=== PATIENT | male | born 1985 | race Caucasian/White ===

== ENCOUNTER 2018-03-18 19:47 | Emergency (ER) | payer OTHER, SELFPAY ==
[2018-03-18 19:48] VITALS: BP 187/100; PULSE 113; RESP 20; TEMP 36.4; O2SAT 97; BMI 33.4
--- NOTE | 2018-03-18 19:52 | RAD_ITS ---
STUDY: X-RAY CHEST REASON FOR EXAM: Male, 33 years old. Chest pain for one week. TECHNIQUE: Single AP portable view of the chest. COMPARISON: None. FINDINGS: Telemetry wires overlie the chest. The lungs are hypoexpanded. There is no focal mass or infiltrate. There is no demonstrated pleural abnormality. Normal size heart. Normal mediastinum and ariana. Normal visualized pulmonary arteries. Normal visualized aortic arch and descending thoracic aorta. The thoracic spine is obscured by the mediastinum. Normal visualized ribs, clavicles, and shoulders. There is no demonstrated abnormality of the visualized soft tissue structures of the upper abdomen. RAD/Chest 1 View (Portable) IMPRESSION: No acute cardiopulmonary disease. Electronically Signed: Alvarado Hernandez DO at 21:17 EDT Tel [phone], Service support ,
--- NOTE | 2018-03-18 19:52 | EKG12_ITS ---
Test Reason : REPEAT Blood Pressure : / mmHG Vent. Rate : 094 BPM Atrial Rate : 094 BPM P-R Int : 222 ms QRS Dur : 078 ms QT Int : 350 ms P-R-T Axes : 023 021 -02 degrees QTc Int : 437 ms Sinus rhythm with 1st degree A-V block Nonspecific T wave abnormality Confirmed by GERRI OTTO, ASIF ([id number]), dictionary editor ODELL CAZARES ([id number]) on 03/22/2018 2:33:29 PM Referred By: RUBY Confirmed By:ASIF TALLEY MD
[2018-03-18 20:01] VITALS: BP 153/106; PULSE 102; RESP 18; O2SAT 96
[2018-03-18 20:10] LABS: Absolute Lymphocyte Count 2.22 X10^3/ul (0.83-4.51); Basophil# 0.09 X10^3/uL; Basophil% 0.9 % (0-1); Eosinophil# 0.29 X10^3/uL; Eosinophils% 2.8 % (0-5); Hematocrit 45.5 % (40-54); Hemoglobin 16.4 g/dl (13.0-16.5); Lymphocyte # 2.22 X10^3/ul (4.0); Lymphocyte % 21.8 % (19-41); Mean Corpuscular Hgb 31.8 pg (27.0-32.0); Mean Corpuscular Volume 88.3 fL (80-94); Mean Platelet Vol. 9.8 fl (6.2-12.0); Monocyte% 5.9 % (0-10); Neutrophil # 6.98 X10^3/uL (2.7-7.7); Neutrophil % 68.5 % (47-70); Platelet Count 172 K/mm3 (150-450); RBC Distribution Width CV 13.1 % (11.6-14.6); Red Blood Count 5.15 M/mm3 (4.6-6.2); White Blood Count 10.2 K/mm3 (4.4-11.0)
[2018-03-18 20:14] LABS: POSITIVE COUNT NO; POSITIVE DIFFERENTIAL NO; POSITIVE MORPHOLOGY NO
[2018-03-18 20:26] LABS: Anion Gap 7 (5-15); BUN 12 mg/dL (7-18); BUN/Creat Ratio 10.3 RATIO (10-20); Calcium,Total 9.1 mg/dL (8.5-10.1); Chloride 107 mmol/L (98-107); Creatinine, Serum 1.16 mg/dL (0.70-1.30); EST Glomerular Filtration Rate 76 mL/min (>60); Est Glom Filt Rate - Afr Amer 92 mL/min (>60); Estimated Creatinine Clearance 103.34 ml/min; Glucose 184 mg/dL (74-106); Potassium 3.3 mmol/L (3.5-5.1); Sodium Level 140 mmol/L (136-145)
[2018-03-18 21:00] VITALS: BP 136/93; PULSE 93; RESP 16; O2SAT 97
--- NOTE | 2018-03-18 21:00 | ED.VISSUMM ---
- ER Visit Summary Date of Service: 03/18/18 Chief Complaint: Chest pain History of Present Illness: The patient is a 33 M with intermittent chest pain over the past several days. States it lasts seconds to minutes at a time. He cannot identify a rhyme or reason as to when it starts. He is noted several episodes of it occurring when he sitting at rest. He states he occasionally gets nauseated and short of breath with it as well. Patient states his father has a strong cardiac history with multiple stents and bypass surgery. Patient does admit to recent plane travel. Physical Examination: Blood pressure is 153/106, temperature 97.6, heart rate 102, respiratory rate 18, pulse ox 96% on room air. Patient sitting upright in bed watching television. He is in no acute distress. Head neck examination is normal. Heart is regular rate and rhythm. Lung sounds are clear. Abdomen is soft nontender. Lower external examination was no calf tenderness or edema on exam. Test Results: EKG is sinus at 101 with no sign of acute ischemia. CBC is normal. Chemistry studies significant only for potassium of 3.3. Glucose is 184. Troponin is less than 0.015. D-dimer is normal at 0.44. Chest x-ray shows no acute disease. Emergency Department Course and Treatment: Patient was given potassium replacement orally. Patient did have one episode of chest pain. Repeat chest x-ray was performed and unremarkable. On repeat examination patient is resting without pain. Test results were discussed with him. Pros and cons of stress testing and admission were discussed. He will prefer to go home at this time. Patient has had 5-7 days of symptoms with normal blood work. It does not seem to be brought on by exertion. He does, however, have a strong family history of heart disease. I will discuss patient with on-call physician for PCP and help to facilitate close follow-up. Treatment Plan: [] Disposition: Discharge Impression: Chest pain This note was generated with [employer] dictation software. It may contain incorrect words, spelling, and punctuation that were not noted in review of the chart prior to signing ED Disposition - Plan for ED Patient: Chief Complaint: Chest Pain Referrals: Patrice Gaston DO [Primary Care Provider] -
[2018-03-18 21:40] LABS: D-Dimer Quantitative (DVT/PE) 0.44 FEU/ug/m (0.27-0.49)
[2018-03-18 22:13] VITALS: BP 137/92; O2SAT 95
--- NOTE | 2018-03-18 22:48 | ED.DEP ---
ED Disposition - Plan for ED Patient: Disposition: Home or Assisted Living Chief Complaint: Chest Pain Instructions: ED Chest Pain Atypical Unkn Cause Referrals: Patrice Gaston DO [Primary Care Provider] - As soon as possible
[2018-03-18 22:57] VITALS: BP 137/92; PULSE 91; RESP 18; O2SAT 95
--- NOTE | 2018-03-18 23:31 | ED.RN ---
encouraged pt to come back with further CP symptoms.
== END 2018-03-18 23:31 | disposition home or self-care (01) ==
PROVIDERS: Emergency Provider Emergency Medicine; Family Provider Student in an Organized Health Care Education/Training Program; PCP Student in an Organized Health Care Education/Training Program
DX: R07.9 Chest pain, unspecified (principal); Z82.49 Family history of ischemic heart disease and other diseases of the circulatory system; Z72.0 Tobacco use
CPT/HCPCS: 71045; 80048; 84484; 85025; 85379; 93005; 99285; A4216

== ENCOUNTER 2018-03-20 14:19 | Observation (INO) | payer OTHER, SELFPAY ==
[2018-03-20] VITALS (9 sets, daily range): BP systolic 147–166; BP diastolic 73–113; PULSE 72–91; RESP 16–22; TEMP 36.8–37.1; O2SAT 94–98; BMI 33.4; BMI 33.3
--- NOTE | 2018-03-20 14:24 | RAD_ITS ---
STUDY: X-RAY CHEST REASON FOR EXAM: Male, 33 years old. Chest pain TECHNIQUE: Single AP portable view of the chest. COMPARISON: None. FINDINGS: The lungs are clear and expanded. There is no demonstrated pleural abnormality. Normal size heart. Normal mediastinum and ariana. Normal visualized pulmonary arteries. Normal visualized aortic arch and descending thoracic aorta. Normal visualized thoracic spine. Normal visualized ribs, clavicles, and shoulders. There is no demonstrated abnormality of the visualized soft tissue structures of the upper abdomen. RAD/Chest 1 View (Portable) IMPRESSION: Normal x-ray examination of the chest. Electronically Signed: Jhonny Doss MD at 15:02 EDT , Service support ,
--- NOTE | 2018-03-20 14:24 | EKG12_ITS ---
Test Reason : CP Blood Pressure : / mmHG Vent. Rate : 101 BPM Atrial Rate : 101 BPM P-R Int : 184 ms QRS Dur : 090 ms QT Int : 356 ms P-R-T Axes : 030 025 000 degrees QTc Int : 461 ms Sinus tachycardia Otherwise normal ECG Confirmed by GERRI OTTO, ASIF ([id number]), editor trade journal ODELL CAZARES ([id number]) on 03/22/2018 2:33:52 PM Referred By: Confirmed By:ASIF TALLEY MD
[2018-03-20] MEDS: Aspirin 81 MG TAB.CHEW 324 MG PO (14:41)
--- NOTE | 2018-03-20 14:41 | ED.DCSUM_ITS ---
- ER Visit Summary Date of Service: 03/20/18 Chief Complaint: [] Recurrent chest pain History of Present Illness: The patient is a 33 M [] patient began having chest pain on Wednesday he was seen in the emergency department workup that was unremarkable with admission was recommended he declined he reports he went home , he also was noted to have elevated blood pressure it is unclear if he has a history of hypertension or not, over today had recurrence of the chest pain and he was instructed to return and he did he is agreeable to admission now indicates chest pain seems to be paroxysmal and is not necessarily associate with food or exertion he has no history of [place] PE DVT and again he has no known history for sure of hypertension he does smoke denies illicit drug use or alcohol works like a desk job Physical Examination: [] Pressure is 150/105 he is resting comforting the bed and traumatic head neck chest unremarkable lungs clear heart tones normal the abdomen soft nontender upper lower extremity unremarkable pulses symmetric no cyanosis clubbing or edema Test Results: [] Emergency Department Course and Treatment: [] Recurrent chest pain his EKG shows nothing acute given all the above we will arrange for screening labs troponin chest x-ray and admission as he has had persistent pain intimately since Wednesday Treatment Plan: [] Disposition: [] Admit stable Impression: [] Recurrent chest pain evaluate for angina This note was generated with [employer] dictation software. It may contain incorrect words, spelling, and punctuation that were not noted in review of the chart prior to signing ED Disposition - Plan for ED Patient: Chief Complaint: Chest Pain Referrals: Patrice Gaston DO [Primary Care Provider] -
[2018-03-20] MEDS: 0.9% Normal Saline 1,000 ML 150 ML IV (14:50)
[2018-03-20 15:24] LABS: Anion Gap 7 (5-15); BUN 14 mg/dL (7-18); BUN/Creat Ratio 15.2 RATIO (10-20); Calcium,Total 9.1 mg/dL (8.5-10.1); Chloride 107 mmol/L (98-107); Creatinine, Serum 0.92 mg/dL (0.70-1.30); EST Glomerular Filtration Rate 100 mL/min (>60); Est Glom Filt Rate - Afr Amer 120 mL/min (>60); Glucose 132 mg/dL (74-106); Potassium 3.4 mmol/L (3.5-5.1); Sodium Level 140 mmol/L (136-145)
[2018-03-20 15:34] LABS: Absolute Lymphocyte Count 2.19 X10^3/ul (0.83-4.51); Absolute Neutrophil Count 5.9 X10^3/uL (2.0-7.7); Basophil# 0.04 X10^3/uL; Basophil% 0.4 % (0-1); Eosinophil# 0.26 X10^3/uL; Eosinophils% 2.9 % (0-5); Hematocrit 45.7 % (40-54); Hemoglobin 16.5 g/dl (13.0-16.5); Lymphocyte # 2.19 X10^3/ul (4.0); Lymphocyte % 24.4 % (19-41); Mean Corp Hgb Conc 36.1 g/gl (32-36); Mean Corpuscular Hgb 32.1 pg (27.0-32.0); Mean Corpuscular Volume 88.9 fL (80-94); Mean Platelet Vol. 9.9 fl (6.2-12.0); Monocyte# 0.55 X10^3/uL; Monocyte% 6.1 % (0-10); Neutrophil # 5.93 X10^3/uL (2.7-7.7); Neutrophil % 66.1 % (47-70); POSITIVE COUNT NO; POSITIVE DIFFERENTIAL NO; POSITIVE MORPHOLOGY NO; Platelet Count 164 K/mm3 (150-450); RBC Distribution Width CV 13.1 % (11.6-14.6); RBC Distribution Width SD 42.4 fl (35.1-43.9); Red Blood Count 5.14 M/mm3 (4.6-6.2)
--- NOTE | 2018-03-20 16:43 | NURSING ---
CALLED [facility] IN [place] TO SEND PT.
--- NOTE | 2018-03-20 17:15 | HP.PCM_ITS ---
<Andrea Lopes - Last Filed: 03/20/18 17:11> Problem List (1) Chest pain Status: Acute (2) Nicotine abuse Status: Chronic History of Present Illness Date of Admission: 03/20/18 Chief Complaint: chest pain The patient is a 33 year old M with a hx of smoking 1ppd x 15 years who presents to the ER today with chest pain. This has been going on all week off and on randomly. It often occurs while he is standing not doing anything, last episode was this AM while he was sitting. He came to the ER on Wednesday and workup was negative and he went home with instructions to come back if it recurred. He had two painful episodes one last night and another this AM at about 1030. He Describes it as a midsternal chest pain that is sharp and severe and it radiates to the left side of his chest and down his left arm. No radiation into the back or neck. No aggravating or alleviating symptoms. He has associated SOB, sweats, lightheadedness, and nausea (no vomiting). He has no medical problems that he knows of. His father had multiple heart problems including CAD and valve issues. He takes no medications. [] Past Medical History Past Medical History (Chronic Problems): Chronic Problems Nicotine abuse (Chronic) Allergies Penicillins [PCN] Allergy (Verified 07/01/16 15:38) Hives tramadol [From Ultram] Allergy (Verified 03/18/18 19:48) Hives Home Medications: Ambulatory Orders Medication Instructions Recorded NK [NK] 03/18/18 Lives: With Family Smoking Status: Current every day smoker Tobacco Use: Cigarettes - 1 ppd x 15 years Alcohol: Occasional Drugs: None - *Family History Maternal History Items: No pertinent history Paternal History Items: Diabetes, Heart Disease - CAD, valves, stents Review of Systems Constitutional: Denies: Chills, Fever, Weight Change HEENT: Denies: Head Aches, Sinus Congestion, Sinus Drainage Cardiovascular: Reports: Chest Pain, Light Headedness. Denies: Chest Pressure, Chest Tightness, Edema, Heaviness, Palpitations, Syncope Respiratory: Reports: Shortness of Breath, Shortness of breath at rest. Denies : Cough, Sputum production Gastrointestinal: Reports: Nausea. Denies: Abdominal Pain, Vomiting Genitourinary: Denies: Dysuria Musculoskeletal: Denies: Joint Pain, Joint Tenderness Skin: Denies: Rash, Wounds Neurological: Denies: Numbness, Tingling, Focal weakness Psychiatric: Denies: Anxiety, Depression, Homicidal Ideations, Suicidal Ideations Hematologic/ Lymphatic: Denies: Easy Bruising, Easy Bleeding VTE Information - Inpt Only VTE Present on Admission: No VTE Mechan Device Prophylaxis: None VTE Pharm Prophylaxis ordered?: No Reason prophylaxis not ordered:: Procedure Not Indicated Patient Problems: Active and Suspected Problems Chest pain (Acute) - Physical Exam General: Alert, Oriented x3, Cooperative HEENT: Atraumatic, PERRLA, EOMI, Normocephalic Neck: Supple, No JVD, Negative Carotid Bruits Lungs: Clear to auscultation, Normal air movement Cardiovascular: Regular rate, No murmurs Abdomen: Bowel Sounds Present, Soft, Non Tender Extremities: No edema, Capillary Refill Less than 3 Seconds Skin: No rashes, No breakdown Musculoskeletal: No Tenderness to Palpation of Joints or Extremities Neurological: Cranial nerves II-XII grossly intact Psych/Mental Status: Normal Affect, Appropriate, Alert and oriented to time, place, person, mood and affect Vital Signs Temp Pulse Resp BP Pulse Ox 98.2 F 78 18 147/85 H 97 03/20/18 14:19 03/20/18 16:20 03/20/18 16:20 03/20/18 16:20 03/20/18 16:20 Assessment/Plan All Active Problems Chest pain (Acute) 1. Chest pain - risk factors include HTN, smoking hx, obesity, + family hx, symptomology. Negative troponin, neg EKG x 2, neg cxr BNP neg. Maintain on tele , prn nitro, daily aspirin, cycle enzymes, AM EKG, AM stress echo. 2. Nicotine abuse - patch ordered 3. HTN - trend, likely needs to be started on oral agent 4. Elevated glucose, check A1C. 5. Hypokalemia - k-dur x1 DVT ppx: early ambulation This patient was seen by Andrea Lopes PA-C under the supervision of Doctor Ralph. <Destiney Rosas - Last Filed: 03/20/18 17:57> History of Present Illness The patient is a 33 year old M [] Past Medical History Allergies Penicillins [PCN] Allergy (Verified 07/01/16 15:38) Hives tramadol [From Ultram] Allergy (Verified 03/18/18 19:48) Hives - Physical Exam Vital Signs Temp Pulse Resp BP Pulse Ox 98.3 F 76 16 161/102 H 95 03/20/18 17:39 03/20/18 17:39 03/20/18 17:39 03/20/18 17:39 03/20/18 17:39 Oxygen Delivery Method Room Air Weight: 117.9 kg Body Mass Index (BMI) 33.3 Assessment/Plan Patient was seen and examined. I agree with the history, physical exam and assessment and plan as documented by Andrea Lopes. 33 y/o male, chronic smoker, with morbid obesity, anxiety disorder on prn Ativan , recent elevated hypertension after shoulder surgery comes in with 1 week history of chest pain, substernal, radiates to left arm, not associated with dizziness, palpitations, light headedness. He was seen in the ED earlier this week; work-up was negative, refused to be admitted, asked to come back if he got symptoms. Positive family history of CAD in father. Physical exam: Vitals show uncontrolled BP, otherwise stable GEN: Obese, not pale, not jaundiced, well hydrated CVS: HS I +II, regular, no murmurs RESP: CTA ABD: Full, BS present, nontender, no palpable masses EXT: No edema A/P: 1. Chest pain, atypical 2. Hypokalemia 3. Hypertension 4. Morbid Obesity 5. Nicotine use disorder 6. Anxiety disorder Admit to telemetry, trend troponin Stress ECHO in am Replace potassium, repeat lab in am HgBA1c, fasting lipid profile Advised to quit smoking, start on Nicotine patch and gum Code Visit OBSV E&M: 33539 Initial observation care L3
--- NOTE | 2018-03-20 17:18 | EKG12_ITS ---
Test Reason : CP Blood Pressure : / mmHG Vent. Rate : 091 BPM Atrial Rate : 091 BPM P-R Int : 170 ms QRS Dur : 088 ms QT Int : 358 ms P-R-T Axes : 035 033 020 degrees QTc Int : 440 ms Normal sinus rhythm Normal ECG Confirmed by JUAN C PAYNE MD ([id number]), web content editor ODELL CAZARES ([id number]) on 03/22/2018 3:16:50 PM Referred By: Confirmed By:JUAN C PAYNE MD
[2018-03-20] MEDS: Acetaminophen 325 MG Tablet 650 MG PO (18:20)
[2018-03-20] MEDS: Carvedilol 3.125 MG TABLET PO (18:37)
[2018-03-20 19:36] LABS: Hemoglobin A1c 6.2 % (4.2-6.3)
[2018-03-20] MEDS: Ibuprofen 600 MG Tablet PO (22:02)
[2018-03-21 03:00] VITALS: PULSE 65
[2018-03-21 03:52] VITALS: BP 135/87; PULSE 68; RESP 16; TEMP 36.6; O2SAT 97
[2018-03-21 05:51] LABS: Hematocrit 46.1 % (40-54); Hemoglobin 16.1 g/dl (13.0-16.5); Mean Corp Hgb Conc 34.9 g/gl (32-36); Mean Corpuscular Hgb 31.3 pg (27.0-32.0); Mean Corpuscular Volume 89.7 fL (80-94); Platelet Count 156 K/mm3 (150-450); RBC Distribution Width CV 13.1 % (11.6-14.6); RBC Distribution Width SD 42.9 fl (35.1-43.9); Red Blood Count 5.14 M/mm3 (4.6-6.2); White Blood Count 8.6 K/mm3 (4.4-11.0)
[2018-03-21 05:53] LABS: Partial Thromboplast Time 28.7 Seconds (24.1-36.2)
--- NOTE | 2018-03-21 05:55 | EKG12_ITS ---
Test Reason : AM Blood Pressure : / mmHG Vent. Rate : 066 BPM Atrial Rate : 066 BPM P-R Int : 208 ms QRS Dur : 088 ms QT Int : 402 ms P-R-T Axes : 033 030 003 degrees QTc Int : 421 ms Normal sinus rhythm with sinus arrhythmia Normal ECG Confirmed by GERRI OTTO, ASIF ([id number]), web content editor ODELL CAZARES ([id number]) on 03/24/2018 12:47:50 PM Referred By: JUDI Confirmed By:ASIF TALLEY MD
--- NOTE | 2018-03-21 05:55 | STEWCON_ITS ---
Reason For Study: Chest pain Stress Results Protocol: Froilan Protocol Maximum Predicted HR: 185 bpm Target HR: 157 bpm% Max imum Predicted HR: 88 % DurationHeart Rate Stage (mm:ss) (bpm) BP Baseline 74 148/98 Stage 1 3:00 11 3 180/100 Stage 2 3:00 13 1 198/94 Stage 3 3:00 15 3 220/90 Stage 4 0:30 16 2 / Recovery 90 158/94 Stress Duration: 9:30 mm:ss Maximum Stress HR: 162 bpm Baseline Echocardiogram Findings Stress Echo Wall motion Data Resting WMIntermediate WMStress WM Resting Wall Motion Wall Motion Stress No regional wall motion No regional wall motion abnormalities noted. abnormalities noted. Ejection Fraction 60 %. Ejection Fraction 70 %. Stress Results Normal blood pressure response to exercise. Exercise was stopped due to dyspnea. EKG Data Baseline ECG demonstrates normal sinus rhythm with a rate of 66 beats per minute. The patient exercised according to the regular Froilan protocol for a total duration of 9 min and 30 sec. The maximum heart rate attained was 176 beats per minute. This was 95% of maximum predicted heart rate. The patient exercised into stage 4 of the Froilan protocol. During stress, there were no ST or T wave changes noted to suggest ischemia. The peak blood pressure was 220/90. No arrhythmias noted. No clinical angina was noted. Interpretation Summary Normal resting LV systolic function. Nonstenotic valves. With stress, the LV size decreased and all segments augmented normally. The LVEF increased from 65% to 70%. Negative for ischemia at 95% of MPHR and at 11.7 METS. There was a 3 beat run of wide complex tachycardia symptomatic. Atypical chest pain noted. Normal stress echo at a high workload. Ordering Physician: Destiney Rosas Performed By: Yonny Lord RCS
[2018-03-21 05:56] LABS: BUN 12 mg/dL (7-18); Estimated Creatinine Clearance 119.88 ml/min; Glucose 132 mg/dL (74-106)
[2018-03-21 05:57] LABS: Anion Gap 8 (5-15); Calcium,Total 8.8 mg/dL (8.5-10.1); Chloride 107 mmol/L (98-107); Cholesterol 181 mg/dL (200); EST Glomerular Filtration Rate 91 mL/min (>60); Est Glom Filt Rate - Afr Amer 110 mL/min (>60); High Density Lipoprotein 21 mg/dL; Potassium 3.9 mmol/L (3.5-5.1); Sodium Level 142 mmol/L (136-145); Triglycerides 301 mg/dL; Very Low Density Lipoprotein 60 mg/dL (5-40)
[2018-03-21 06:07] VITALS: BP 156/102; PULSE 68; RESP 18; TEMP 36.9; O2SAT 97
[2018-03-21] MEDS: Aspirin 81 MG TAB.CHEW PO (06:09)
[2018-03-21 06:10] LABS: Scan Indicated on CBC? Y/N NO
[2018-03-21 07:15] VITALS: PULSE 65
[2018-03-21 09:51] VITALS: BP 140/90; PULSE 79; RESP 16; TEMP 36.7; O2SAT 94
[2018-03-21] MEDS: Lisinopril 5 MG Tablet PO (09:52)
[2018-03-21] MEDS: Carvedilol 3.125 MG TABLET PO (09:52)
[2018-03-21 11:02] VITALS: PULSE 73
--- NOTE | 2018-03-21 11:32 | DCINST_ITS ---
- Discharge Diagnoses Current Active Problems: Current Active and Chronic Problems Chest pain (Acute) Nicotine abuse (Chronic) You will use the following diet at home:: Calorie/Carbohydrate Controlled ( specify 1200, 1400, etc) - 1800 champ / day, Cardiac - 2g sodium daily Your food should be the consistency of: Regular Your liquids should be the consistency of: Regular/Thin Discharge Activity: Return to Normal Activity Allergies/Adverse Reactions: Allergies Penicillins [PCN] Allergy (Verified 07/01/16 15:38) Hives tramadol [From Ultram] Allergy (Verified 03/18/18 19:48) Hives Medications to take at Discharge Atorvastatin Calcium [Lipitor] 10 mg PO QHS #30 tab 03/21/18 Carvedilol [Coreg (Beta Julio César)] 3.125 mg PO BID #60 tab 03/21/18 Lisinopril [Zestril] 5 mg PO DAILY #30 tab 03/21/18 The following prescriptions were given: Atorvastatin Calcium [Lipitor] 10 mg PO QHS #30 tab Carvedilol [Coreg (Beta Julio César)] 3.125 mg PO BID #60 tab Lisinopril [Zestril] 5 mg PO DAILY #30 tab Primary Care Physician: Patrice Gaston DO [Primary Care Provider] - Please follow up with your Primary Care Physician in: 1-2 weeks Test Results: Test results from this visit will be discussed in further detail at your follow- up appointment, if applicable. Proposed Discharge Date: 03/21/18
--- NOTE | 2018-03-21 11:51 | PCM.DC.SUM ---
<Andrea Lopes - Last Filed: 03/21/18 11:51> Discharge Date and Diagnosis Date of Admission: 03/20/18 Date of Discharge: 03/21/18 - Primary Discharge Diagnosis Active and Suspected Problems Chest pain (Acute) - musculoskeletal HTN, poorly controlled, new dx Prediabetes - new dx HLD, dysmetabolic syndrome Nicotine abuse - Secondary Discharge Diagnosis Chronic Problems Nicotine abuse (Chronic) Hospital Course and Treatment Imaging Results: 03/21/18 05:55 Stress Test Echo w/o Contrast [ECHO] Routine - negative for ischemia Interpretation Summary Normal resting LV systolic function. Nonstenotic valves. With stress, the LV size decreased and all segments augmented normally. The LVEF increased from 65% to 70%. Negative for ischemia at 95% of MPHR and at 11.7 METS. There was a 3 beat run of wide complex tachycardia symptomatic. Atypical chest pain noted. Normal stress echo at a high workload. CXR negative. Operations: None Procedures: None Summary of Care Provided: Physical exam on day of discharge: General: Resting comfortably NAD Psych: A/Ox3 normal affect HEENT: PEARRLA AT NC Neck: Supple NT CV: RRR no m/t/r/g/h Resp: CTA Abd: [id number] Soft NT no guarding or rigidity Ext: DP2+= no edema Skin: W/D normal turgor Lymph/Heme: No active bleeding or adenopathy Neuro: CN2-12 intact Hospital course: The patient is a 33 year old M with a hx of nicotine abuse not on any medications who presented to the ER with c/c of intermittent chest pain left sided stabbing pain that would last for about 20 mins associated with SOB, LH, diaphoresis. He had presented to the ER two days prior, had a negative workup and was sent home with instructions to return if symptoms continued. Symptoms did return and he represented, with a negative troponin, negative EKG, and negative CXR. He was admitted for chest pain workup. He was maintained on telemetry, he had repeat enzymes, repeat EKG, and stress test in the AM. He had no acute findings indicating a cardiac etiology of his CP. Also as part of his treatment and workup he had an A1C and lipid panel checked. These did reveal prediabetes with an a1c of 6.2, and hyperlipidemia with high trigs, ldl 100, and low HLD of 22. He was started on atorvastatin. With his glucose intolerance, obesity, and htn in combination with these he has metabolic syndrome. He was started on both linisopril and coreg given his poor htn control. At this time he wants to try to adjust his diet in order to better control his sugars. He was provided with diabetic education. He was advised to follow up with his PCP in 1-2 weeks to discuss these new conditions and to monitor his new medication therapy. He was strongly advised to discontinue all energy drinks - he was drinking 3-4/day. He was advised to stop smoking. He was discharged home in stable condition. This patient was seen by Andrea Lopes PA-C under the supervision of Doctor Hanh. [] Discharge Diet: Low fat/ Low Cholesterol, 1800 Calorie Control Diet, 2000 mg Sodium Diet Discharge Activity: Return to Normal Activity Home Medications: Medications to take at Discharge Atorvastatin Calcium [Lipitor] 10 mg PO QHS #30 tab 03/21/18 Carvedilol [Coreg (Beta Julio César)] 3.125 mg PO BID #60 tab 03/21/18 Lisinopril [Zestril] 5 mg PO DAILY #30 tab 03/21/18 Following Prescrptions Were Given to Patient: Atorvastatin Calcium [Lipitor] 10 mg PO QHS #30 tab Carvedilol [Coreg (Beta Julio César)] 3.125 mg PO BID #60 tab Lisinopril [Zestril] 5 mg PO DAILY #30 tab Primary Care Physician: Patrice Gaston DO [Primary Care Provider] - Please follow up with your Primary Care Physician in: 1-2 weeks Disposition: Home Minutes spent on discharge:: 35 Patient Condition:: Stable Medical Necessity - Tobacco Use Smoking Status: Current every day smoker Tobacco Use: Cigarettes Meaningful Use Info Meaningful Use Diagnoses (Choose all that apply): None applicable <Kay Schafer - Last Filed: 03/21/18 13:13> Discharge Date and Diagnosis - Secondary Discharge Diagnosis Chronic Problems Nicotine abuse (Chronic) Hospital Course and Treatment Imaging Results: 03/21/18 05:55 Stress Test Echo w/o Contrast [ECHO] Routine Summary of Care Provided: Seen by Andrea Navarro physician teaching assistant in my supervision. The patient is a 33 year old M with a history of nicotine abuse who was admitted with a complaint of intermittent left sided chest pain, with associated SOB and diaphoresis. EKG was negative and troponins were also negative. CXR showed no acute pathology. Stress echocardiogram done showed a normal stress echo at high workload with normal resting left ventricular systolic function, nonstenotic valves and EF decreasing from 6 5% 70% with stress. Was negative for ischemia as well. He had atypical chest pain noted during the stress test with a 3 beat run of wide-complex tachycardia. Chest pain resolved and patient remained stable. Labs done during admission showed A1c of 6.2 and hypertriglyceridemia and LDL of 100 as well as HDL of 22. ASCVD score not calculated as he was not within required age range. He was started on Lisinopril 5mg daily and Coreg 3.125mg bid.. He is to follow up with his PCP in 1-2 weeks. Patient was seen and examined prior to discharge. Agree with Andrea Lopes PA-C's note and assessment and plan. [] Code Visit Inpatient E&M: 67421 Disch Hosp
== END 2018-03-21 11:32 | disposition home or self-care (01) ==
LOC: ED 14:57 → PCU 16:41
PROVIDERS: Physician Assistant; Admitting Provider Internal Medicine; Emergency Provider Emergency Medicine; Family Provider Student in an Organized Health Care Education/Training Program; PCP Student in an Organized Health Care Education/Training Program; Visit Provider Student in an Organized Health Care Education/Training Program
DX: R07.89 Other chest pain (principal); F17.210 Nicotine dependence, cigarettes, uncomplicated; I10 Essential (primary) hypertension; E87.6 Hypokalemia; E66.01 Morbid (severe) obesity due to excess calories; Z68.33 Body mass index [BMI] 33.0-33.9, adult; Z71.3 Dietary counseling and surveillance; F41.9 Anxiety disorder, unspecified; R73.03 Prediabetes; E78.5 Hyperlipidemia, unspecified; R06.02 Shortness of breath
CPT/HCPCS: 36415; 71045; 80048; 80061; 83036; 83880; 84484; 85025; 85027; 85610; 85730; 93005; 93017; 93350; 96360; 96361; 99218; 99283; 99406; J7030; G0378

== ENCOUNTER → 2018-03-31 14:02 | Outpatient (CLI) | payer OTHER, SELFPAY | PROVIDERS: Family Provider Student in an Organized Health Care Education/Training Program; PCP Student in an Organized Health Care Education/Training Program; Visit Provider Nurse Practitioner Adult Health | DX: I10 Essential (primary) hypertension (principal) | CPT/HCPCS: 93225; 93226 ==

== ENCOUNTER 2020-04-16 15:23 | Emergency (ER) | payer BC, SELFPAY ==
[2020-04-16 15:23] VITALS: BP 158/102; PULSE 76; RESP 18; TEMP 36.6; O2SAT 97; BMI 30.9
--- NOTE | 2020-04-16 15:55 | CT_ITS ---
STUDY: CT ABDOMEN AND PELVIS WITHOUT CONTRAST REASON FOR EXAM: Male, 35 years old. RLQ PAIN X 2 DAYS-GETTING WORSE RADIATION DOSAGE (If Supplied By Facility): CTDIvol = ( 18.04 ) mGy, DLP = ( 1352.00 ) mGycm TECHNIQUE: Transaxial images were obtained from the dome of the diaphragm to the symphysis pubis without oral contrast, and without intravenous contrast. Sagittal and coronal images were reconstructed. Individualized dose optimization techniques were used for this CT. COMPARISON: None. FINDINGS: The visualized lung bases are unremarkable. The visualized portions of the heart are within normal limits. Normal liver. There is non-visualization of the gallbladder, which may be secondary to either contraction or a prior cholecystectomy. Normal spleen. Normal pancreas. Normal bilateral adrenal glands. Normal right kidney. Normal left kidney. Normal visualized stomach. Normal small intestine. Normal colon. The appendix is visualized and appears normal. Normal abdominal aorta. Normal inferior vena cava. Normal retroperitoneum. Normal urinary bladder. Normal abdominal wall. Normal osseous structures. CT/Abdomen/Pelvis W IV Cont ONLY IMPRESSION: Normal unenhanced CT of the abdomen and pelvis. Electronically Signed: Luis Guzmán MD at 16:55 EDT Tel , Service support ,
[2020-04-16 16:02] LABS: Bacteria 0 SEEN /hpf (None Seen); Mucous, Urine 0 SEEN /hpf (<or=2+); Red Blood Cells-Urine 0 SEEN /hpf (0-5)
[2020-04-16 16:04] LABS: Absolute Lymphocyte Count 2.34 X10^3/uL (0.83-4.51); Absolute Neutrophil Count 5.3 X10^3/uL (2.0-7.7); Basophil# 0.06 X10^3/uL; Basophil% 0.7 % (0-1); Eosinophil# 0.24 X10^3/uL; Eosinophils% 2.8 % (0-5); Hematocrit 44.2 % (40-54); Hemoglobin 15.8 g/dL (13.0-16.5); Lymphocyte # 2.34 X10^3/ul (4.0); Lymphocyte % 27.5 % (19-41); Mean Corp Hgb Conc 35.7 g/dL (32-36); Mean Corpuscular Hgb 31.3 pg (27.0-32.0); Mean Corpuscular Volume 87.5 fL (80-94); Mean Platelet Vol. 9.8 fl (6.2-12.0); Monocyte# 0.52 X10^3/uL; Monocyte% 6.1 % (0-10); NRBC Flagged by Analyzer 0 % (0-5); Neutrophil # 5.32 X10^3/uL (2.7-7.7); Neutrophil % 62.5 % (47-70); Platelet Count 194 K/mm3 (150-450); RBC Distribution Width CV 12.4 % (11.6-14.6); RBC Distribution Width SD 39.5 fl (35.1-43.9); Red Blood Count 5.05 M/mm3 (4.6-6.2); White Blood Count 8.5 K/mm3 (4.4-11.0)
--- NOTE | 2020-04-16 16:07 | ED.VIS.GEN ---
History of Present Illness Chief Complaint: Abd Pain Informant: Patient Narrative: 5-year-old male with past medical history of hypertension, diabetes, hyperlipidemia presents with concern for right lower quadrant pain. States it is been intermittent over the past 48 hours. Was seen over a telehealth visit by his primary care physician yesterday where she did lab work and advised him to go straight to the emergency department if it worsened. Describes it as aching. No relieving or worsening factors. Admits to nausea without vomiting. Denies any changes in his urination or bowel habits. Denies any trauma. Past Medical History - Allergies and Home Meds Allergies/Adverse Reactions: Allergies Penicillins [PCN] Allergy (Verified 07/01/16 15:38) Hives tramadol [From Ultram] Allergy (Verified 03/18/18 19:48) Hives Primary Care Physician: Patrice Gaston DO [Primary Care Provider] - Past Medical History: - - Retention, hyperlipidemia, diabetes Surgical History: cholecystectomy Lives: Spouse/ Significant Other Smoking Status: Current every day smoker Alcohol: None Drugs: None - Family History Maternal Family History: Reports: No pertinent history Paternal Family History: Reports: Diabetes, Heart Disease - CAD, valves, stents Review of Systems General: Denies: Chills, Fever, Sweats Eyes: Denies: Visual changes - bilaterally, Diplopia ENT: Denies: Rhinorrhea, Sore throat Cardiovascular: Denies: Chest pain, Palpitations Respiratory: Denies: Dyspnea, Cough, Dyspnea on exertion Gastrointestinal: Reports: Abdominal pain, Nausea. Denies: Vomiting, Diarrhea, Melena, Hematochezia Genitourinary: Denies: Dysuria, Hematuria, Frequency Musculoskeletal: Denies: Back pain, Extremity Pain Skin: Denies: Rash, Wounds Neurological: Denies: Headache, Weakness, Numbness Physical Exam Vital Signs/Narrative: Vital Signs Temp Pulse Resp BP Pulse Ox 04/16/20 15:23 97.8 F 76 18 158/102 H 97 Inital Vital Signs reviewed: Yes General: Well nourished, Well developed, No Acute Distress Head: Normocephalic, Atraumatic Eyes: Perrl, EOMI ENT: Moist mucous membranes, No rhinorrhea Neck: Supple, Nontender Cardiovascular: Regular rate, Regular rhythm, No murmurs Respiratory: No distress, CTA bilaterally, Chest nontender Abdomen: Soft, Nondistended, Normal bowel sounds, - - Tenderness to palpation in the right lower quadrant. Voluntary guarding. Back: Nontender, Normal Inspection Extremities: Nontender, No edema Skin: Normal color, No rash Neurological: Alert, Oriented x3, Cranial nerves II-XII grossly intact, Normal Strength, Normal Sensation Psychological: Normal affect, Normal Mood Diagnostic/Tx/Re-eval Clinical Impression(s) from Imaging Studies Abdomen/Pelvis CT 04/16/20 15:55 IMPRESSION: Normal unenhanced CT of the abdomen and pelvis. Electronically Signed: Luis Guzmán MD at 16:55 EDT Tel , Service support , Laboratory Data 04/16/20 04/16/20 04/16/20 15:45 15:45 15:45 WBC 8.5 RBC 5.05 Hgb 15.8 Hct 44.2 MCV 87.5 MCH 31.3 MCHC 35.7 RDW Std Deviation 39.5 RDW Coeff of Radha 12.4 Plt Count 194 MPV 9.8 Immature Gran % (Auto) 0.400 Neut % (Auto) 62.5 Lymph % (Auto) 27.5 Josephine % (Auto) 6.1 Eos % (Auto) 2.8 Baso % (Auto) 0.7 Absolute Neuts (auto) 5.3 Absolute Lymphs (auto) 2.34 Nucleated RBC % 0 Sodium 138 Potassium 3.0 L Chloride 105 Carbon Dioxide 28.0 Anion Gap 5 BUN 7 Creatinine 1.03 Estim Creat Clear Calc 117.36 Est GFR (MDRD) Af Amer 104 Est GFR (MDRD) Non-Af 86 BUN/Creatinine Ratio 6.8 L Glucose 151 H Calcium 8.9 Total Bilirubin 1.00 Direct Bilirubin 0.23 AST 18 ALT 56 Alkaline Phosphatase 120 H Total Protein 7.3 Albumin 4.2 Globulin 3.1 Urine Color Yellow Urine Clarity Sl. Cloudy Urine pH 6.0 Ur Specific [place] 1.020 Urine Protein 30 H Urine Glucose (UA) 250 H Urine Ketones 5 H Urine Occult Blood Negative Urine Nitrite Negative Urine Bilirubin Negative Urine Urobilinogen 1 H Ur Leukocyte Esterase 25 H Urine RBC 0 SEEN Urine WBC 0-5 SEEN Ur Squamous Epith Cells 0-5 SEEN Urine Bacteria 0 SEEN Urine Mucus 0 SEEN - Medical Decision Making Appears well nontoxic. Vital signs within normal limits. Hypokalemia but otherwise normal lab work. Afebrile without leukocytosis. CT abdomen pelvis negative. Patient was given pain control, antiemetic, and fluid resuscitation. Patient will be given Bentyl, potassium, and Zofran for home. Asked to return if no resolution in his symptoms over the next 24 hours. Patient agreeable and discharged home in stable condition. Impression: 1. Abdominal pain 2. Nausea and vomiting 3. Hypokalemia ED Disposition - Plan for ED Patient: Disposition: Home or Assisted Living Instructions: ED Unknown Causes of Abdominal Pain Male Prescriptions: Dicyclomine HCl [Bentyl] 20 mg PO TIDAC #20 cap Prescription Printed Potassium Chl Soln 20 meq PO DAILY #7 udc Prescription Printed Ondansetron [Zofran Odt] 4 mg PO Q8H PRN PRN #10 tab PRN Reason: Nausea Prescription Printed Referrals: Patrice Gaston DO [Primary Care Provider] -
[2020-04-16] MEDS: Ondansetron 4 MG/2 ML Vial IV (16:17)
[2020-04-16] MEDS: 0.9% Normal Saline 1,000 ML 1000 ML IV (16:17)
[2020-04-16] MEDS: Morphine 4 MG/ML Syringe IV (16:18)
[2020-04-16 16:22] LABS: AST(SGOT) 18 U/L (15-37); Alanine Aminotransfer ALT/SGPT 56 U/L (16-61); Albumin, Serum 4.2 g/dL (3.2-5.0); Alkaline Phosphatase 120 U/L (45-117); Anion Gap 5 (5-15); BUN 7 mg/dL (7-18); BUN/Creat Ratio 6.8 RATIO (10-20); Bilirubin, Direct 0.23 mg/dL (0.00-0.30); Calcium,Total 8.9 mg/dL (8.5-10.1); Chloride 105 mmol/L (98-107); Creatinine, Serum 1.03 mg/dL (0.70-1.30); EST Glomerular Filtration Rate 86 mL/min (>60); Est Glom Filt Rate - Afr Amer 104 mL/min (>60); Estimated Creatinine Clearance 117.36 ml/min; Globulin 3.1 g/dL (2.2-4.2); Glucose 151 mg/dL (74-106); Protein, Total 7.3 g/dL (6.4-8.2); Sodium Level 138 mmol/L (136-145)
[2020-04-16 16:23] LABS: Color, Urine Yellow (Yellow); Glucose, Dipstick 250 mg/dl (Normal); Ketone-Dipstick 5 mg/dl (Negative); Leukocyte Esterase-Dipstick 25 /ul (Negative); Nitrite-Dipstick Negative (Negative); Occult Blood-Urine Negative /ul (Negative); Protein-Dipstick 30 mg/dl (Negative); Urine Bilirubin Dipstick Negative (Negative); Urine Clarity Sl. Cloudy (Clear); Urine Urobilinogen 1 mg/dl (Normal)
[2020-04-16 16:41] LABS: Squamous Epithelial Cells - UA 0-5 SEEN /hpf (0-5); White Blood Cells 0-5 SEEN /hpf (0-5)
[2020-04-16 16:49] VITALS: BP 175/95; PULSE 76; RESP 16; TEMP 36.6; O2SAT 98
[2020-04-16 17:44] VITALS: BP 173/111; PULSE 84; RESP 18; O2SAT 98
--- NOTE | 2020-04-16 17:45 | ED.RN ---
THIS NURSE SPOKE WITH DR JAMES ABOUT THE PT BLOOD PRESSURE. OK TO CONTINUE WITH D/C. THIS NURSE REVIEWED D/C INSTRUCTIONS WITH PT AND VISITOR. BOTH VERBALIZED UNDERSTANDING OF INSTRUCTIONS. IV D/C. IV CATHETER INTACT. PT TOLERATED WELL. PT DENIES FURTHER NEEDS OR QUESTIONS AT THIS TIME. PT AMBULATES FROM ROOM ON OWN WITHOUT ASSISTANCE FROM STAFF.
== END 2020-04-16 17:45 | disposition home or self-care (01) ==
PROVIDERS: Emergency Provider Emergency Medicine; PCP Student in an Organized Health Care Education/Training Program
DX: R10.31 Right lower quadrant pain (principal); R11.2 Nausea with vomiting, unspecified; E87.6 Hypokalemia; F17.200 Nicotine dependence, unspecified, uncomplicated
CPT/HCPCS: 74177; 80048; 80076; 81001; 85025; 96374; 96375; 99285; J7030; Q9967; J2405

== ENCOUNTER 2021-08-21 17:26 | Emergency (ER) | payer BC, SELFPAY ==
[2021-08-21 17:27] VITALS: BP 198/121; PULSE 90; RESP 18; TEMP 36.8; O2SAT 96; BMI 31.4
--- NOTE | 2021-08-21 17:46 | EKG12_ITS ---
Test Reason : HYPERTENSION Blood Pressure : / mmHG Vent. Rate : 083 BPM Atrial Rate : 083 BPM P-R Int : 190 ms QRS Dur : 082 ms QT Int : 370 ms P-R-T Axes : 019 014 011 degrees QTc Int : 434 ms Normal sinus rhythm Normal ECG Confirmed by ELMER OTTO, JUAN C ([id number]), electronic news gathering editor LEON BETTENCOURT ([id number]) on 08/27/2021 12:03:49 PM Referred By: PRIYANKA Confirmed By:JUAN C PAYNE MD
--- NOTE | 2021-08-21 17:50 | EX.ED.DYSGE1 ---
HPI History of Present Illness Chief Complaint: Hypertension PFSH PFSH Home Medications atorvastatin 10 mg PO QHS #30 tab 03/21/18 [Rx Last Taken Unknown] carvedilol 3.125 mg PO BID #60 tab 03/21/18 [Rx Last Taken Unknown] lisinopril 5 mg PO DAILY #30 tab 03/21/18 [Rx Last Taken Unknown] dicyclomine 20 mg PO TIDAC #20 cap 04/16/20 [Rx Last Taken Unknown] ondansetron 4 mg PO Q8H PRN PRN #10 tab 04/16/20 [Rx Last Taken Unknown] potassium chloride 20 meq PO DAILY #7 udc 04/16/20 [Rx Last Taken Unknown] Allergy/AdvReac Type Severity Reaction Status Date / Time Penicillins [PCN] Allergy Hives Verified 08/21/21 17:29 tramadol [From Ultram] Allergy Hives Verified 08/21/21 17:29 Social History Smoking Status: Current every day smoker EXAM Physical Exam Const Vital Signs: 08/21/21 17:27 Temperature 98.3 F Temperature Source Temporal Pulse Rate 90 Respiratory Rate 18 Blood Pressure 198/121 H Blood Pressure Mean 146 Pulse Ox 96 Oxygen Delivery Method Room Air Discharge Plan Triage Chief Complaint: Hypertension ED Provider: Puma Ly Dx/Rx/DC Orders Prescriptions: No Action atorvastatin 10 MG tablet 10 mg PO QHS Qty: 30 RF: 0 carvedilol 3.125 MG tablet 3.125 mg PO BID Qty: 60 RF: 0 lisinopril 5 MG tablet 5 mg PO DAILY Qty: 30 RF: 0 potassium chloride 20 MEQ/15 ML liquid 20 meq PO DAILY Qty: 7 RF: 0 ondansetron 4 MG tablet 4 mg PO Q8H PRN PRN (Reason: Nausea) Qty: 10 RF: 0 dicyclomine 10 MG capsule 20 mg PO TIDAC Qty: 20 RF: 0 Primary Care Provider: Patrice Gaston
--- NOTE | 2021-08-21 17:56 | EX.ED.DYSGE1 ---
HPI History of Present Illness Chief Complaint: Hypertension Informant: patient Narrative Narrative: Patient presents with concern for high blood pressure. He has had only been on meds for few months. His blood pressure increased recently because he is dealing with a neck pain issue. He is having this evaluated by his physician. He was started on gabapentin for this. He has a MRI coming up. Its not giving him so much problems acutely. He currently is on lisinopril 40 mg a day. His med list shows 5 mg. He is on carvedilol 6.25 mg twice a day. This was just increased within the last day. He comes in because the blood pressure is not better. He also just does not feel right but he cannot give any specifics for this. No chest pain. No dyspnea. No headache. No neurologic symptoms. He thinks that if his neck starts hurting his blood pressure does go up. Nothing specifically makes it better. PFSH PFSH Home Medications atorvastatin 10 mg PO QHS #30 tab 03/21/18 [Rx Last Taken Unknown] carvedilol 3.125 mg PO BID #60 tab 03/21/18 [Rx Last Taken Unknown] lisinopril 5 mg PO DAILY #30 tab 03/21/18 [Rx Last Taken Unknown] dicyclomine 20 mg PO TIDAC #20 cap 04/16/20 [Rx Last Taken Unknown] ondansetron 4 mg PO Q8H PRN PRN #10 tab 04/16/20 [Rx Last Taken Unknown] potassium chloride 20 meq PO DAILY #7 udc 04/16/20 [Rx Last Taken Unknown] Allergy/AdvReac Type Severity Reaction Status Date / Time Penicillins [PCN] Allergy Hives Verified 08/21/21 17:29 tramadol [From Ultram] Allergy Hives Verified 08/21/21 17:29 Social History Smoking Status: Current every day smoker tobacco type: cigarettes ROS ROS ED Constitutional Constitutional ED: Denies fever(s) Eyes Eyes: Denies blurry vision ENT ENT ED: Denies ear pain or sore throat Cardiovascular Cardiovascular: Denies chest pain, palpitations or racing heartbeat Respiratory/Chest Respiratory/Chest: Denies cough or dyspnea Gastrointestinal Gastrointestinal: Denies nausea or vomiting Genitourinary Genitourinary ED: Denies dysuria Musculoskeletal Musculoskeletal: Reports neck pain; Denies arthralgias, back pain or myalgias Integumentary Denies rash Neurologic Neurologic: Denies headache(s), paresthesias or weakness Psychiatric Psychiatric: Denies anxiety or depression Endocrine Endocrinology: Denies polydipsia or polyuria Allergic/Immunologic Allergic/Immunologic ED: Denies mouth swelling or urticaria EXAM Physical Exam Const Vital Signs: 08/21/21 17:27 08/21/21 17:55 08/21/21 18:29 Temperature 98.3 F Temperature Source Temporal Pulse Rate 90 86 Respiratory Rate 18 16 Respiratory Effort Normal Blood Pressure 198/121 H 174/109 H Blood Pressure Mean 146 130 Pulse Ox 96 96 Oxygen Delivery Method Room Air Room Air 08/21/21 19:58 08/21/21 21:16 Temperature Temperature Source Pulse Rate 72 70 Respiratory Rate 20 H 18 Respiratory Effort Blood Pressure 175/111 H 161/106 H Blood Pressure Mean 132 124 Pulse Ox 96 97 Oxygen Delivery Method Room Air Room Air Positive well nourished and well developed General Appearance ED: well developed and NAD; Negative for cyanotic or diaphoretic Eyes General Eye ED: Negative for pale conjunctiva or scleral icterus Neck no JVD Chest Wall inspection of chest normal and palpation of chest normal Resp normal respiratory effort and clear to auscultation bilaterally Effort and Inspection: Negative for pain with movement Auscultation: Negative for rales, rhonchi or wheezes Cardio regular rate, regular rhythm and no murmurs GI normal to inspection, nondistended, normoactive bowel sounds and non-tender Back/Spine no CVA tenderness Extremity normal to inspection General Extremety ED: Negative for edema or tenderness General Extremity: Negative for edema Neuro oriented x3 Sensorium / Orientation: alert Psych mental status grossly normal Skin no rashes or lesions noted MDM MDM MDM Narrative Medical decision making narrative: Patient's blood work shows normal hemoglobin and white count and rest of the CBC. Electrolytes showed mild decrease potassium which was replaced. However kidney function is normal. Glucose just shows minimal elevations. Chest x-ray showed no acute process. We did give the patient a small dose of labetalol. Blood pressures diastolic came down 20 points. I do not think we need to lower more than this. The rest needs to be done outpatient over time. He is on full dose lisinopril at 40 mg. However, he is on a very small dose of carvedilol. He has quite a way to go on this. Instead of 2 tablets twice a day we will move him up to 3 now. But he is still well below the top dose. He will follow up with his physician for ongoing care of blood pressure. He will also be following up for his ongoing evaluation of the neck discomfort that he has. Lab Data Attestation: I reviewed the patient's lab results. Labs: Laboratory Results - last 24 hr 08/21/21 08/21/21 17:55 17:55 WBC 8.1 RBC 5.23 Hgb 16.3 Hct 45.2 MCV 86.4 MCH 31.2 MCHC 36.1 H RDW Std Deviation 39.1 RDW Coeff of Radha 12.5 Plt Count 194 MPV 9.7 Immature Gran % (Auto) 0.400 Neut % (Auto) 70.9 H Lymph % (Auto) 17.5 L [place] % (Auto) 7.5 Eos % (Auto) 3.0 Baso % (Auto) 0.7 Absolute Neuts (auto) 5.7 Absolute Lymphs (auto) 1.41 Nucleated RBC % 0 Sodium 138 Potassium 3.2 L Chloride 104 Carbon Dioxide 28.0 Anion Gap 6 BUN 12 Creatinine 1.00 Estim Creat Clear Calc 116.45 Est GFR (MDRD) Af Amer 107 Est GFR (MDRD) Non-Af 89 BUN/Creatinine Ratio 12.0 Glucose 129 H Calcium 8.7 Radiography Diagnostic Testing: Clinical Impression(s) from Imaging Studies Chest X-Ray 08/21/21 18:10 IMPRESSION: No acute radiographic abnormalities. Electronically Signed: Obinna Babin MD at 19:14 EST Tel , Service support , Discharge Plan Triage Chief Complaint: Hypertension ED Provider: Puma Ly Dx/Rx/DC Orders Clinical Impression: Hypertension Instructions: ED Hypertension, Established Prescriptions: No Action atorvastatin 10 MG tablet 10 mg PO QHS Qty: 30 RF: 0 carvedilol 3.125 MG tablet 3.125 mg PO BID Qty: 60 RF: 0 lisinopril 5 MG tablet 5 mg PO DAILY Qty: 30 RF: 0 potassium chloride 20 MEQ/15 ML liquid 20 meq PO DAILY Qty: 7 RF: 0 ondansetron 4 MG tablet 4 mg PO Q8H PRN PRN (Reason: Nausea) Qty: 10 RF: 0 dicyclomine 10 MG capsule 20 mg PO TIDAC Qty: 20 RF: 0 Primary Care Provider: Patrice Gaston Referrals: Patrice Gaston DO [Primary Care Provider] - As soon as possible Disposition Disposition: Home, Self Care
[2021-08-21 18:04] LABS: Absolute Lymphocyte Count 1.41 X10^3/uL (0.83-4.51); Absolute Neutrophil Count 5.7 X10^3/uL (2.0-7.7); Basophil# 0.06 X10^3/uL; Basophil% 0.7 % (0-1); Eosinophil# 0.24 X10^3/uL; Hematocrit 45.2 % (40-54); Hemoglobin 16.3 g/dL (13.0-16.5); Lymphocyte # 1.41 X10^3/ul (0.83-4.51); Lymphocyte % 17.5 % (19-41); Mean Corp Hgb Conc 36.1 g/dL (32-36); Mean Corpuscular Hgb 31.2 pg (27.0-32.0); Mean Corpuscular Volume 86.4 fL (80-94); Mean Platelet Vol. 9.7 fl (6.2-12.0); Monocyte% 7.5 % (0-10); NRBC Flagged by Analyzer 0 % (0-5); Neutrophil # 5.71 X10^3/uL (2.7-7.7); Neutrophil % 70.9 % (47-70); Platelet Count 194 K/mm3 (150-450); RBC Distribution Width CV 12.5 % (11.6-14.6); RBC Distribution Width SD 39.1 fl (35.1-43.9); Red Blood Count 5.23 M/mm3 (4.6-6.2); White Blood Count 8.1 K/mm3 (4.4-11.0)
--- NOTE | 2021-08-21 18:10 | RAD_ITS ---
INDICATION: cough EXAMINATION/TECHNIQUE: X-RAY - XR Chest 1 View COMPARISON: 03/20/2018. FINDINGS: The lungs are clear. The cardiomediastinal silhouette is unremarkable. No pleural effusion or pneumothorax. No acute osseous abnormalities. RAD/Chest 1 View (Portable) IMPRESSION: No acute radiographic abnormalities. Electronically Signed: Obinna Babin MD at 19:14 EST Tel , Service support ,
[2021-08-21 18:22] LABS: Anion Gap 6 (5-15); BUN 12 mg/dL (7-18); Calcium,Total 8.7 mg/dL (8.5-10.1); Chloride 104 mmol/L (98-107); EST Glomerular Filtration Rate 89 mL/min (>60); Est Glom Filt Rate - Afr Amer 107 mL/min (>60); Estimated Creatinine Clearance 116.45 ml/min; Glucose 129 mg/dL (74-106); Potassium 3.2 mmol/L (3.5-5.1); Sodium Level 138 mmol/L (136-145)
[2021-08-21 18:29] VITALS: BP 174/109; PULSE 86; RESP 16; O2SAT 96
[2021-08-21] MEDS: Potassium Chloride Oral Tablet 20 MEQ 40 MEQ PO (19:02)
[2021-08-21 19:58] VITALS: BP 175/111; PULSE 72; RESP 20; O2SAT 96
[2021-08-21] MEDS: Labetalol (Prefilled) 20 MG/4 ML IV (20:42)
[2021-08-21 21:16] VITALS: BP 161/106; PULSE 70; RESP 18; O2SAT 97
[2021-08-21 22:00] VITALS: BP 158/67; PULSE 73; RESP 16; O2SAT 97
== END 2021-08-21 22:02 | disposition home or self-care (01) ==
PROVIDERS: Emergency Provider Emergency Medicine; PCP Student in an Organized Health Care Education/Training Program
DX: I10 Essential (primary) hypertension (principal); M54.2 Cervicalgia; F17.210 Nicotine dependence, cigarettes, uncomplicated; Z79.899 Other long term (current) drug therapy
CPT/HCPCS: 71045; 80048; 85025; 93005; 96374; 99283; A4216

== ENCOUNTER → 2022-07-31 | Outpatient (CLI) | payer OTHER, SELFPAY ==
[2022-07-31 07:14] LABS: Anion Gap 5 (5-15); BUN 17 mg/dL (7-18); BUN/Creat Ratio 14.9 RATIO (10-20); Calcium,Total 9.1 mg/dL (8.5-10.1); Chloride 106 mmol/L (98-107); Cholesterol 199 mg/dL (200); Creatinine, Serum 1.14 mg/dL (0.70-1.30); EST Glomerular Filtration Rate 76 mL/min (>60); Est Glom Filt Rate - Afr Amer 92 mL/min (>60); Glucose 259 mg/dL (74-106); High Density Lipoprotein 23 mg/dL; Potassium 3.5 mmol/L (3.5-5.1); Sodium Level 139 mmol/L (136-145); Thyroid Stim Hormone (TSH) 0.84 uIU/mL (0.358-3.74); Triglycerides 457 mg/dL
== END | disposition home or self-care (01) ==
LOC: LAB 06:33
PROVIDERS: PCP Student in an Organized Health Care Education/Training Program; Visit Provider Internal Medicine Cardiovascular Disease
DX: I10 Essential (primary) hypertension (principal)
CPT/HCPCS: 36415; 80048; 80061; 84443

== ENCOUNTER → 2022-08-10 | Outpatient (CLI) | payer OTHER, SELFPAY ==
--- NOTE | 2022-08-10 13:09 | CT_ITS ---
STUDY: CT CHEST WITH CONTRAST REASON FOR EXAM: Male, 37 years old. Rule out Aortic Aneurysm. Hypertension. Family history of heart disease. RADIATION DOSAGE (If Supplied By Facility): CTDIvol = ( 16.23 ) mGy, DLP = ( 666.71 ) mGycm TECHNIQUE: Transaxial imaging was performed following intravenous administration of IV 100mL Isovue-300. Multiplanar coronal and sagittal images were reformatted. Individualized dose optimization techniques were used for this CT. COMPARISON: No relevant priors. FINDINGS: CHEST Stable small benign-appearing bilateral axillary lymph nodes. Minimal bilateral pleural fluid with mild bibasilar atelectasis. Normal heart and pericardium. Normal mediastinum. Normal hilar regions. Normal unenhanced pulmonary arteries. Normal aorta arch and descending thoracic aorta. Normal osseous structures. Hepatomegaly and diffuse fatty infiltration of the liver. The gallbladder is not visualized. CT/Chest WITH Contrast IMPRESSION: Minimal pleural effusions with minimal bibasilar atelectasis. Electronically Signed: Marciano Muller MD at 14:15 EST ,
== END | disposition home or self-care (01) ==
LOC: CT 13:07
PROVIDERS: PCP Student in an Organized Health Care Education/Training Program; Visit Provider Internal Medicine Cardiovascular Disease
DX: I77.819 Aortic ectasia, unspecified site (principal)
CPT/HCPCS: 71260; Q9967

== ENCOUNTER 2023-02-08 13:28 | Emergency (ER) | payer OTHER, SELFPAY ==
[2023-02-08] VITALS (12 sets, daily range): BP systolic 167–222; BP diastolic 106–140; PULSE 76–117; RESP 16–24; TEMP 36.4; O2SAT 98; BMI 29.6
--- NOTE | 2023-02-08 13:47 | ED.RN ---
Pt states he stopped taking all bp medications wednesday d/t not feeling well and thinking the meds were making him sick.
--- NOTE | 2023-02-08 14:27 | CT_ITS ---
EXAM: CT ANGIOGRAPHY CHEST WITHOUT AND WITH INTRAVENOUS CONTRAST CLINICAL INDICATION: pain, aortic enlargement, ? dissection TECHNIQUE: Helically acquired angiography images were obtained of the chest without and with intravenous contrast. This CT exam was performed using one or more of the following dose reduction techniques: automated exposure control, adjustment of the mA and/or kV according to patient size, and/or use of iterative reconstruction technique. MIP reconstructed images were created and reviewed. CONTRAST: IV 100mL Isovue-370 RADIATION DOSE: CTDIvol = 12.51 mGy, DLP = 516.74 mGy-cm COMPARISON: No relevant prior studies available. FINDINGS: PULMONARY ARTERIES: Unremarkable. Normal in caliber. No evidence of pulmonary embolism. AORTA: Unremarkable. Normal in caliber. No evidence of dissection. GREAT VESSELS OF AORTIC ARCH: Unremarkable. Normal in caliber. No evidence of dissection. LUNGS AND PLEURAL SPACES: Unremarkable. No mass. No consolidation or edema. No pleural effusion or thickening. No pneumothorax. HEART: Unremarkable. Heart size is normal. No pericardial effusion. No significant coronary artery calcifications. MEDIASTINUM: Unremarkable. No mediastinal or hilar adenopathy. Esophagus is unremarkable. No hiatal hernia. THYROID: Unremarkable. No thyroid lesions. BONES/JOINTS: Unremarkable. No suspicious lytic or blastic abnormality. CT/CTA Chest W/WO Contrast IMPRESSION: Negative CTA chest. Electronically Signed: Jhonny Doss MD at 16:13 EDT ,
--- NOTE | 2023-02-08 14:28 | ED.VIS.CHEST ---
HPI History of Present Illness Chief Complaint: Chest Pain Informant: patient Narrative Narrative: Patient presents with chest pain. Patient states that since Wednesday approximately 5 days he has been getting chest pain. It does come and go away completely. It tends to come on more with activity. It is mostly left side of his chest and is a heavy ache. It radiates up to her shoulder left side of the neck and jaw. It will go to the back of the left side of the neck at times but not to the back of his chest. It is not tearing or ripping. He has never had neurologic symptoms. When it is bad he does get sweaty short of breath and feels weak. Patient has a history of high blood pressure high cholesterol and he was on Trulicity for diabetes in the past. He has strong family history of heart disease with his father having a heart attack at 39. He is still a smoker. He also quit taking all of his medicines on Wednesday. He also reports a history of an aortic abnormality. He states he thought it was too small but the chart states of aortic dilation. He denies history of known heart disease. But he does have multiple risk factors. [facility] Medical History Aortic dilatation Cervical disc disorder with radiculopathy Cervicogenic headache Chest pain Essential (primary) hypertension WILLIAM (generalized anxiety disorder) GERD (gastroesophageal reflux disease) Neck pain of over 3 months duration Obesity (BMI 30.0-34.9) Polydipsia Polyuria Resistant hypertension Rotator cuff tear, left Situational anxiety Type 2 diabetes mellitus Home Medications carvedilol 25 mg tablet 25 mg PO BIDWMEAL 07/09/22 [History Last Taken Unknown] lisinopril 40 mg tablet 40 mg PO DAILY 07/09/22 [History Last Taken Unknown] hydrochlorothiazide 25 mg tablet 25 mg PO DAILY #30 tabs 07/22/22 [Rx Last Taken Unknown] atorvastatin 40 mg tablet 40 mg PO QHS #90 tabs 07/31/22 [Rx Last Taken Unknown] diazepam 2 mg tablet 2 mg PO BID PRN anxiety 10/20/22 [History Last Taken Unknown] quetiapine 50 mg tablet 50 mg PO QHS 10/20/22 [History Last Taken Unknown] spironolactone 25 mg tablet (Aldactone) 25 mg PO DAILY #30 tabs 10/21/22 [Rx Last Taken Unknown] nortriptyline 10 mg capsule 10 mg PO QHS 02/08/23 [History Last Taken Unknown] Allergy/AdvReac Type Severity Reaction Status Date / Time Penicillins [PCN] Allergy Hives Verified 02/08/23 13:32 tramadol [From Ultram] Allergy Hives Verified 02/08/23 13:32 Family History Father Hypertension Myocardial infarction, Onset Age: 44 Diabetes CVA (cerebral vascular accident) Heart disease, Onset Age: 38 triple bypass Surgical History Hx laparoscopic cholecystectomy (~04/10/14) Hx of arthroscopy of shoulder (~09/2017) Hx of shoulder surgery Hx of tonsillectomy Trigger finger of thumb (~2001) Social History Smoking Status: Current every day smoker tobacco type: cigarettes alcohol intake: current alcohol intake frequency: holidays/special occasions only substance use type: does not use caffeine: Yes Type: coffee ROS ROS ED ROS Narrative A complete review of systems was performed and is negative except as documented in the history of present illness. Some specific details below. Constitutional: No recent fevers or chills. EYE: No discharge, visual complaints, or pain. ENT: No difficulty swallowing. No swelling. No pain. No reflux symptoms. He does get some pain in the left side of his neck and jaw when the chest pain occurs. CV: See history of present illness. Respiratory: See history of present illness. Dyspnea with chest pain but not individually. GI: No abdominal pain. No nausea vomiting diarrhea. No blood in stool. : No frequency dysuria or hematuria. Musculoskeletal: No recent trauma. No back pains. No swelling. Skin: No rash. He has gotten diaphoretic with the chest pain but not currently. Neuro: No weakness or numbness. Endocrine: No polyuria or polydipsia. EXAM Physical Exam Narrative Exam Narrative: CONSTITUTIONAL: Patient is nontoxic in appearance. The patient looks comfortable. Work of breathing looks normal. He is not toxic in appearance despite his concerning story. He looks quite comfortable. HEENT: No notable trauma. Mucous membranes moist. No sinus tenderness. No indication of pain with swallowing. EYES: No conjunctival injection. No proptosis. NECK:No JVD. No stridor. No bruit is noted. No tenderness. CARDIOVASCULAR: Regular rate. Regular rhythm. No notable murmur. No JVD. No muffled tones. RESPIRATORY: No respiratory distress. Breathing is unlabored. No wheezes. No rhonchi. No rales. No pain with a deep breath. No chest wall tenderness. GASTROINTESTINAL: Not distended. Bowel sounds are normal. No tenderness. No guarding. No rebound. No palpable mass. No bruit is heard. GENITOURINARY: No tenderness over the bladder. No CVA tenderness. MUSCULOSKELETAL: Atraumatic. No peripheral edema. No cord. No tenderness along the deep venous system. No asymmetry. No distended veins. Peripheral pulses are equal x4. NEUROLOGICAL: Patient is alert and appropriate. No focal deficit noted. SKIN: No noted rashes. No diaphoresis. No mottling or skin changes of extremities. PSYCHIATRIC: Patient is calm. Mood is appropriate. Const Vital Signs: 02/08/23 13:29 02/08/23 13:42 02/08/23 14:31 Temperature 97.6 F L Temperature Source Temporal Pulse Rate 117 H Respiratory Rate 16 Respiratory Effort Normal Non-Labored Blood Pressure 222/140 H Blood Pressure Mean 167 Pulse Ox 98 Oxygen Delivery Method Room Air Room Air 02/08/23 13:45 02/08/23 14:00 02/08/23 14:15 Temperature Temperature Source Pulse Rate 103 H 101 H 98 Respiratory Rate 24 H 20 H 24 H Respiratory Effort Blood Pressure 178/130 H 178/123 H 177/119 H Blood Pressure Mean 144 139 135 Pulse Ox Oxygen Delivery Method 02/08/23 14:30 02/08/23 16:09 02/08/23 14:45 Temperature Temperature Source Pulse Rate 91 82 Respiratory Rate 21 H 20 H Respiratory Effort Blood Pressure 173/116 H 169/107 H 173/115 H Blood Pressure Mean 134 127 131 Pulse Ox Oxygen Delivery Method 02/08/23 15:00 02/08/23 15:15 02/08/23 15:30 Temperature Temperature Source Pulse Rate 77 81 80 Respiratory Rate 18 20 H 22 H Respiratory Effort Blood Pressure 173/106 H 167/109 H 185/116 H Blood Pressure Mean 121 124 137 Pulse Ox Oxygen Delivery Method 02/08/23 15:45 02/08/23 16:00 Temperature Temperature Source Pulse Rate 79 76 Respiratory Rate 18 19 H Respiratory Effort Blood Pressure 170/106 H 171/107 H Blood Pressure Mean 125 124 Pulse Ox Oxygen Delivery Method Heart Score History: Moderately Suspicious ECG: Normal Age: </= 45 years Risk Factors: >/= 3 Risk Factors or History of CAD Troponin: </= Normal Limit Score: 3 MDM MDM MDM Narrative Medical decision making narrative: Patient CBC shows no marked abnormalities. Minimal elevation in hemoglobin. Patient's electrolytes show some slightly low potassium that should self correct with diet. Renal function is preserved. Glucose is slightly high at 189 but he is currently not on any meds for this. This can be followed as an outpatient. Patient's troponin is negative at 7. Patient's magnesium is normal at 2. Patient's TSH is normal at 0.47. My independent interpretation of the CT of the chest shows no sign of dissection PE pneumonia. Final reading is negative CTA chest. I talk with patient about options. He really does not want to come in the hospital. He has been having pain since last Wednesday. I think some of this may be due to his high blood pressure. He has been off of his meds. He states he just does not feel good on them. I explained that he really needs to be back on his meds. He can talk to his lime spreader about adjusting dosages or meds but it is not safe for him to not take them. With his negative work-up and a heart score of 3 I think he can go home and this is what he wants. But again he was encouraged to take his medicines as prescribed pending follow-up with his primary physician and lime spreader. Lab Data Attestation: I reviewed the patient's lab results. Labs: Laboratory Results - last 24 hr 02/08/23 02/08/23 13:45 13:45 WBC 10.9 RBC 5.30 Hgb 16.7 H Hct 46.6 MCV 87.9 MCH 31.5 MCHC 35.8 RDW Std Deviation 39.8 RDW Coeff of Radha 12.4 Plt Count 197 MPV 10.0 Immature Gran % (Auto) 0.500 Neut % (Auto) 74.3 H Lymph % (Auto) 17.4 L [place] % (Auto) 5.5 Eos % (Auto) 1.3 Baso % (Auto) 1.0 Absolute Neuts (auto) 8.1 H Absolute Lymphs (auto) 1.90 Nucleated RBC % 0 Sodium 138 Potassium 3.2 L Chloride 104 Carbon Dioxide 25.0 Anion Gap 9 BUN 10 Creatinine 1.06 Estim Creat Clear Calc 111.83 Est GFR (MDRD) Af Amer 100 Est GFR (MDRD) Non-Af 82 BUN/Creatinine Ratio 9.4 L Glucose 189 H Calcium 9.4 Magnesium 2.0 Troponin I High Sens 7 TSH 0.47 Radiography Diagnostic Testing: Clinical Impression(s) from Imaging Studies Chest CTA 02/08/23 14:27 IMPRESSION: Negative CTA chest. Electronically Signed: Jhonny Doss MD at 16:13 EDT , EKG Initial EKG: Comments: My independent interpretation the patient's EKG shows sinus rhythm with slightly tachycardic rate at 106. No ventricular ectopy. No acute ST elevation or depression. PA interval, QRS duration and QTc are normal. Other than slightly increased rate the EKG looks similar to 21 August 2021. Discharge Plan Triage Chief Complaint: Chest Pain ED Provider: Puma Ly Dx/Rx/DC Orders Clinical Impression: Chest pain, Essential (primary) hypertension, Poor compliance with medication Instructions: ED Chest Pain, Uncertain Cause, ED Hypertension, Established Prescriptions: No Action hydrochlorothiazide 25 mg tablet 25 mg PO DAILY Qty: 30 10RF lisinopril 40 mg tablet 40 mg PO DAILY carvedilol 25 mg tablet 25 mg PO BIDWMEAL Rx Instructions: must administer with a meal/food diazepam 2 mg tablet 2 mg PO BID PRN (Reason: anxiety) Label Comments: TAKE 1 TABLET BY MOUTH TWICE DAILY NEEDED FOR UP TO 30 DAYS quetiapine 50 mg tablet 50 mg PO QHS spironolactone [Aldactone] 25 mg tablet 25 mg PO DAILY Qty: 30 6RF nortriptyline 10 mg capsule 10 mg PO QHS atorvastatin 40 mg tablet 40 mg PO QHS Qty: 90 3RF Primary Care Provider: Patrice Gaston Referrals: Wes Romero MD [Med Staff - Active Staff] - As soon as possible Patrice Gaston DO [Primary Care Provider] - As Needed Disposition Disposition: Home, Self Care
[2023-02-08] MEDS: Aspirin 81 MG TAB.CHEW 324 MG PO (14:34)
[2023-02-08] MEDS: Labetalol (Prefilled) 20 MG/4 ML IV (14:36)
[2023-02-08 14:50] LABS: Absolute Neutrophil Count 8.1 X10^3/uL (2.0-7.7); Basophil# 0.11 X10^3/uL; Eosinophil# 0.14 X10^3/uL; Eosinophils% 1.3 % (0-5); Hematocrit 46.6 % (40-54); Hemoglobin 16.7 g/dL (13.0-16.5); Lymphocyte % 17.4 % (19-41); Mean Corp Hgb Conc 35.8 g/dL (32-36); Mean Corpuscular Hgb 31.5 pg (27.0-32.0); Mean Corpuscular Volume 87.9 fL (80-94); Monocyte% 5.5 % (0-10); NRBC Flagged by Analyzer 0 % (0-5); Neutrophil # 8.13 X10^3/uL (2.7-7.7); Neutrophil % 74.3 % (47-70); Platelet Count 197 K/mm3 (150-450); RBC Distribution Width CV 12.4 % (11.6-14.6); RBC Distribution Width SD 39.8 fl (35.1-43.9); White Blood Count 10.9 K/mm3 (4.4-11.0)
[2023-02-08 15:14] LABS: Anion Gap 9 (5-15); BUN 10 mg/dL (7-18); BUN/Creat Ratio 9.4 RATIO (10-20); Calcium,Total 9.4 mg/dL (8.5-10.1); Chloride 104 mmol/L (98-107); Creatinine, Serum 1.06 mg/dL (0.70-1.30); EST Glomerular Filtration Rate 82 mL/min (>60); Est Glom Filt Rate - Afr Amer 100 mL/min (>60); Estimated Creatinine Clearance 111.83 ml/min; Glucose 189 mg/dL (74-106); Potassium 3.2 mmol/L (3.5-5.1); Sodium Level 138 mmol/L (136-145); Thyroid Stim Hormone (TSH) 0.47 uIU/mL (0.358-3.74); Troponin-I HS (w/2H Reflex) 7 pg/mL (3.0-78.0)
[2023-02-08 16:38] LABS: Reflex Troponin-HS? (from REC) Y
[2023-02-08] MEDS: Labetalol (Prefilled) 20 MG/4 ML 10 MG IV (16:45)
[2023-02-08 17:18] LABS: Troponin-I HS 8 pg/mL (3.0-78.0)
== END 2023-02-08 16:57 | disposition home or self-care (01) ==
PROVIDERS: Emergency Provider Emergency Medicine; PCP Student in an Organized Health Care Education/Training Program; Visit Provider Emergency Medicine
DX: R07.9 Chest pain, unspecified (principal); F17.210 Nicotine dependence, cigarettes, uncomplicated; I10 Essential (primary) hypertension; E78.00 Pure hypercholesterolemia, unspecified; Z79.899 Other long term (current) drug therapy
CPT/HCPCS: 71275; 80048; 83735; 84443; 84484; 85025; 93005; 96374; 96376; 99283; Q9967; A4216